=== PATIENT | female | born 1935 | race Caucasian/White ===

== ENCOUNTER 2016-05-04 08:16 | Outpatient (CLI) | payer MEDICARE ==
[2016-05-04 09:35] LABS: #Basophils 0.1 thou/uL (0.0-0.2); #Eosinphils 0.2 thou/uL (0.0-0.7); #Lymphocytes 1.6 thou/uL (1.20-3.40); #Monocytes 0.3 thou/uL (0.11-0.59); #Neutrophils 2.5 thou/uL (1.40-6.50); %Basophils 1.1 % (0.0-1.0); %Eosinophils 3.8 % (0.0-10.0); %Lymphocytes 34.3 % (21.0-51.0); %Monocytes 5.5 % (0.0-10.0); Hematocrit 41.8 % (36.0-47.0); Mean Platelet Volume 6.4 fL (7.4-10.4); Red Blood Cell (RBC) Count 4.62 mill/uL (4.20-5.40); White Blood Cell (WBC) Count 4.6 thou/uL (4.8-10.8)
[2016-05-04 09:41] LABS: ALT (SGPT) 12 U/L (0-55); AST (SGOT) 17 U/L (5-34); Alkaline Phosphatase 69 U/L (40-150); Anion Gap 14 mmol/L (10-20); BUN (Urea Nitrogen) 38 mg/dL (9.8-20.1); Bilirubin, Total 0.5 mg/dL (0.2-1.2); Calc. Creatinine Clearance 0 mL/min (70-130); Calcium 9.2 mg/dL (7.8-10.44); Carbon Dioxide 29 mmol/L (23-31); Chloride 101 mmol/L (98-107); Estimated GFR-MDRD 57; Globulin 2.3 g/dL (2.4-3.5); LDL Cholesterol, Calculated 186 mg/dL; Protein, Total 6.5 g/dL (5.8-8.1)
[2016-05-04 10:18] LABS: Bilirubin Negative (Negative); Blood, Urine Moderate (Negative); Glucose, Urine (Dipstick) Negative (Negative); Ketone, Urine Negative (Negative); Nitrite Negative (Negative); Protein, Urine (Dipstick) Negative (Neg-Trace); Urobilinogen 0.2 mg/dL (0.2-1.0)
[2016-05-04 10:39] LABS: Bacteria/HPF Rare-Few HPF (None Seen); Squamous Epithelial 0-3 HPF (0-3)
== END 2016-05-04 08:17 | disposition home or self-care (01) ==
LOC: NAV LAB 08:16
PROVIDERS: ATTEND Family Medicine
DX: I50.22 Chronic systolic (congestive) heart failure (principal); M80.08XS Age-related osteoporosis with current pathological fracture, vertebra(e), sequela
CPT/HCPCS: 36415; 80053; 80061; 81001; 82306; 84443; 85025

== ENCOUNTER 2016-08-31 11:38 | Outpatient (CLI) | payer MEDICARE ==
[2016-08-31 13:13] LABS: Anion Gap 14 mmol/L (10-20); BUN (Urea Nitrogen) 49 mg/dL (9.8-20.1); Calc. Creatinine Clearance 0 mL/min (70-130); Calcium 8.9 mg/dL (7.8-10.44); Carbon Dioxide 30 mmol/L (23-31); Chloride 102 mmol/L (98-107); Estimated GFR-MDRD 31; Glucose 111 mg/dL (83-110); Potassium 4.8 mmol/L (3.5-5.1); Sodium 141 mmol/L (136-145)
[2016-08-31 13:56] LABS: Follow-up Chemistry Comp? YES; Follow-up Result - Chemistry REPORT FAXED
== END 2016-08-31 11:39 | disposition home or self-care (01) ==
LOC: NAV LAB 11:38
PROVIDERS: ATTEND Specialist
DX: I50.9 Heart failure, unspecified (principal)
CPT/HCPCS: 36415; 80048

== ENCOUNTER 2016-11-03 18:05 | Outpatient (CLI) | payer MEDICARE ==
[2016-11-03 18:49] LABS: #Eosinphils 0.1 thou/uL (0.0-0.7); #Monocytes 0.3 thou/uL (0.11-0.59); #Neutrophils 3.2 thou/uL (1.40-6.50); %Basophils 0.6 % (0.0-1.0); %Eosinophils 1.7 % (0.0-10.0); %Monocytes 7.2 % (0.0-10.0); %Neutrophils 69.5 % (42.0-75.0); Hemoglobin 12.6 g/dL (12.0-16.0); Mean Corpuscular HGB CONC 31.5 g/dL (32.0-36.0); Mean Corpuscular Hemoglobin 27.9 pg (27.0-31.0); Mean Corpuscular Volume 88.6 fl (81.0-99.0); Platelet Count 143 thou/uL (130-400); RBC Distribution Width 11.6 % (11.5-14.5); Red Blood Cell (RBC) Count 4.49 mill/uL (4.20-5.40); White Blood Cell (WBC) Count 4.6 thou/uL (4.8-10.8)
[2016-11-03 19:00] LABS: Anion Gap 16 mmol/L (10-20); BUN (Urea Nitrogen) 32 mg/dL (9.8-20.1); Calc. Creatinine Clearance 0 mL/min (70-130); Calcium 9.6 mg/dL (7.8-10.44); Carbon Dioxide 29 mmol/L (23-31); Chloride 101 mmol/L (98-107); Estimated GFR-MDRD 50; Glucose 93 mg/dL (83-110); Potassium 4.3 mmol/L (3.5-5.1); Sodium 142 mmol/L (136-145)
== END 2016-11-03 18:06 | disposition home or self-care (01) ==
LOC: NAV LABSP 18:05
PROVIDERS: ATTEND Family Medicine
DX: R07.89 Other chest pain (principal)
CPT/HCPCS: 80048; 85025

== ENCOUNTER 2019-04-15 11:26 | Outpatient (CLI) | payer MEDICARE ==
--- NOTE | 2019-04-15 11:51 | RAD ---
Exam: LUMBAR SPINE 3 VIEWS: HISTORY: Fecal incontinence, new onset diagnosis. COMPARISON: 08/26/2014 FINDINGS: Five lumbar type vertebra. There appear to be rudimentary ribs at T12. There is rightward curvature o f the upper lumbar spine with a leftward curvature of the mid to lower lumbar spine. There is vacuum disc phenomenon at L1-L2, L2-L3. Endplate sclerosis is identified, throughout the lumbar spine . Lumbar spine vertebral body height is maintained. There is no fracture. Spondylolisthesis: L1-L2 demonstrates 3.2 mm of retrolisthesis. L2-L3 demonstrates 2.1 mm of retrolisthesis. L4-L5 demonstrates 1.9 mm retrolisthesis. L5-S1 demonstrates 9 mm of anterolisthesis. Visualized bony pelvis and sacrum are grossly unremarkable. Atherosclerosis of aorta is noted. 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 There is mild scoliotic curvature. Mul tilevel vacuum disc phenomenon and osteophyte formation is noted. When compared to the previous exam, there is progression of degenerative change. Transcribed Date/Time: 04/15/2019 12:02 PM
== END 2019-04-15 11:27 | disposition home or self-care (01) ==
LOC: NAV RAD 11:26
PROVIDERS: ATTEND Family Medicine
DX: R15.9 Full incontinence of feces (principal); M41.9 Scoliosis, unspecified; M47.816 Spondylosis without myelopathy or radiculopathy, lumbar region; M25.78 Osteophyte, vertebrae
CPT/HCPCS: 72110

== ENCOUNTER 2020-09-07 07:26 | Outpatient (CLI) | payer MEDICARE ==
[2020-09-08 01:53] LABS: SARS-CoV-2 PCR by NAA Not Detected (NotDetected)
== END 2020-09-07 07:27 | disposition home or self-care (01) ==
LOC: NAV LAB 07:26
PROVIDERS: ATTEND Family Medicine
DX: Z01.89 Encounter for other specified special examinations (principal); N81.5 Vaginal enterocele
CPT/HCPCS: U0003; U0005

== ENCOUNTER 2022-04-13 13:01 | Emergency (ER) | payer MEDICARE ==
[2022-04-13] MEDS ORDERED: Fentanyl 100 MCG/2 ML VIAL ONE (13:26)
[2022-04-13] MEDS ORDERED: Ondansetron ODT 4 MG TAB ONE (13:27)
[2022-04-13] MEDS ORDERED: Ketorolac Tromethamine 30 MG/ML VIAL ONE (14:51)
[2022-04-13] MEDS ORDERED: Morphine 4 MG/ML VIAL ONE ×2 (14:51→17:38)
[2022-04-13 16:10] LABS: Bilirubin Small (Negative); Blood, Urine Moderate (Negative); Glucose, Urine (Dipstick) Negative (Negative); Ketone, Urine Negative (Negative); Leukocyte Small (Negative); Nitrite Positive (Negative); Protein, Urine (Dipstick) Trace mg/dL (Neg-Trace)
[2022-04-13 16:14] LABS: Clarity Hazy (Clear)
[2022-04-13 16:18] LABS: Specific Gravity, Urine 1.026 (1.002-1.036)
[2022-04-13 16:20] LABS: Bacteria/HPF 4+ HPF (None Seen); Squamous Epithelial 0-3 HPF (0-3); WBC/HPF Greater Than 50 HPF (0-3)
[2022-04-13 16:26] LABS: #Eosinphils 0.1 thou/uL (0.0-0.7); #Lymphocytes 1.2 thou/uL (1.20-3.40); #Monocytes 0.2 thou/uL (0.11-0.59); #Neutrophils 5.5 thou/uL (1.40-6.50); %Basophils 0.3 % (0.0-1.0); %Eosinophils 1.1 % (0.0-10.0); %Lymphocytes 17.5 % (21.0-51.0); %Monocytes 3.4 % (0.0-10.0); %Neutrophils 77.8 % (42.0-75.0); Hemoglobin 10.4 g/dL (12.0-16.0); Mean Corpuscular HGB CONC 31.4 g/dL (32.0-36.0); Mean Corpuscular Hemoglobin 29.9 pg (27.0-31.0); Mean Corpuscular Volume 95.3 fl (78.0-98.0); Mean Platelet Volume 6.6 fL (7.4-10.4); Platelet Count 150 10x3/uL (130-400); RBC Distribution Width 13.1 % (11.5-14.5); Red Blood Cell (RBC) Count 3.47 mill/uL (4.20-5.40)
[2022-04-13 16:32] LABS: PTT 30.6 sec (22.9-36.1); Prothrombin Time 13.8 sec (12.0-14.7)
[2022-04-13 16:41] LABS: ALT (SGPT) 12 U/L (8-55); AST (SGOT) 14 U/L (5-34); Alkaline Phosphatase 81 U/L (40-110); Anion Gap 11 mmol/L (10-20); BUN (Urea Nitrogen) 31 mg/dL (9.8-20.1); Bilirubin, Total 0.4 mg/dL (0.2-1.2); Calc. Creatinine Clearance 0 mL/min (70-130); Calcium 8.2 mg/dL (7.8-10.44); Carbon Dioxide 29 mmol/L (23-31); Chloride 102 mmol/L (98-107); Estimated GFR 73; Globulin 2.5 g/dL (2.4-3.5); Glucose 100 mg/dL (83-110); Lipase 22 U/L (8-78); Magnesium 1.9 mg/dL (1.6-2.6); Potassium 4.1 mmol/L (3.5-5.1); Protein, Total 5.5 g/dL (5.8-8.1); Sodium 138 mmol/L (136-145)
[2022-04-13] MEDS ORDERED: cefTRIAXone\\ROCEPHIN 1 GM VIAL ONE (16:43)
[2022-04-13] MEDS ORDERED: Acetaminophen 325 MG TAB ONE (16:43)
[2022-04-13] MEDS ORDERED: Sodium Chloride 0.9% 100 ML ONE (16:45)
[2022-04-13 18:45] LABS: SARS-CoV-2 NAA Rapid Test Not Detected (NotDetected)
== END 2022-04-13 19:33 | disposition short-term general hospital (02) ==
LOC: NAV ERS 13:01
DX: A41.9 Sepsis, unspecified organism (principal); N39.0 Urinary tract infection, site not specified; M54.50 Low back pain, unspecified; M19.90 Unspecified osteoarthritis, unspecified site; M81.0 Age-related osteoporosis without current pathological fracture; Z20.822 Contact with and (suspected) exposure to COVID-19; Z79.899 Other long term (current) drug therapy
CPT/HCPCS: 71045; 72131; 80053; 81003; 81015; 83605; 83690; 83735; 85025; 85610; 85730; 87040; 87077; 87086; 87149; 87186; 87804; 93005; 96372; 96374; 96375; J0696; J1885; J2270; J3010; J3490; Q0162; U0002

== ENCOUNTER 2022-05-18 10:54 | Inpatient (IN) | payer MEDICARE ==
[2022-05-18] MEDS ORDERED: diphenhydrAMINE 25 MG CAP PO PRN (15:19)
[2022-05-18] MEDS ORDERED: Ipratropium/Albuterol 3 ML NEB NEB PRN (15:19)
[2022-05-18] MEDS ORDERED: Cyclobenzaprine 10 MG TAB PO PRN (15:19)
[2022-05-18] MEDS ORDERED: Ondansetron ODT 4 MG TAB SL PRN (15:24)
[2022-05-18] MEDS ORDERED: Bisacodyl 5 MG TAB PO PRN (15:24)
[2022-05-18] MEDS ORDERED: Morphine IR 10 MG/5 ML UDCUP PO PRN (17:12)
[2022-05-18] MEDS: Ferrous Gluconate 324 MG TAB PO SCH (18:03)
[2022-05-18] MEDS: Acetaminophen 500 MG TAB PO SCH ×2 (18:03→23:59)
[2022-05-18] MEDS ORDERED: hydrALAZINE 25 MG TAB PO PRN (19:29)
[2022-05-18] MEDS: Gabapentin 300 MG CAP PO SCH (21:15)
[2022-05-18] MEDS: DULoxetine 30 MG CAP PO SCH (21:16)
[2022-05-18] MEDS: Aspirin 81 mg Enteric Coated Tablet PO SCH (21:16)
[2022-05-18] MEDS: Carvedilol 6.25 MG TAB PO SCH (21:17)
[2022-05-18] MEDS: traZODone HCl 50 MG TAB PO SCH (21:17)
[2022-05-18] MEDS: traMADol HCl 50 MG TAB PO SCH (21:18)
[2022-05-19] MEDS: traMADol HCl 50 MG TAB PO SCH ×4 (02:00→20:30)
[2022-05-19] MEDS: Acetaminophen 500 MG TAB PO SCH ×4 (04:35→23:54)
[2022-05-19] MEDS: traMADol HCl 50 MG TAB PO PRN (04:35)
[2022-05-19 06:24] LABS: #Eosinphils 0.2 thou/uL (0.0-0.7); #Monocytes 0.2 thou/uL (0.11-0.59); #Neutrophils 2.7 thou/uL (1.40-6.50); %Basophils 0.5 % (0.0-1.0); %Eosinophils 5.8 % (0.0-10.0); %Lymphocytes 24.1 % (21.0-51.0); %Monocytes 4.4 % (0.0-10.0); %Neutrophils 65.2 % (42.0-75.0); Hemoglobin 8.2 g/dL (12.0-16.0); Mean Corpuscular HGB CONC 31.9 g/dL (32.0-36.0); Mean Corpuscular Hemoglobin 28.1 pg (27.0-31.0); Mean Corpuscular Volume 88.4 fl (78.0-98.0); Mean Platelet Volume 4.8 fL (7.4-10.4); Platelet Count 148 10x3/uL (130-400); RBC Distribution Width 14.5 % (11.5-14.5); Red Blood Cell (RBC) Count 2.92 mill/uL (4.20-5.40); White Blood Cell (WBC) Count 4.1 10x3/uL (4.8-10.8)
[2022-05-19 06:28] LABS: ALT (SGPT) 8 U/L (8-55); AST (SGOT) 22 U/L (5-34); Albumin 2.8 g/dL (3.4-4.8); Alkaline Phosphatase 65 U/L (40-110); Anion Gap 16 mmol/L (10-20); BUN (Urea Nitrogen) 16 mg/dL (9.8-20.1); Bilirubin, Total 0.4 mg/dL (0.2-1.2); Calc. Creatinine Clearance 51 mL/min (70-130); Calcium 7.9 mg/dL (7.8-10.44); Carbon Dioxide 25 mmol/L (23-31); Chloride 103 mmol/L (98-107); Estimated GFR 86; Globulin 2.2 g/dL (2.4-3.5); Glucose 88 mg/dL (83-110); Potassium 3.6 mmol/L (3.5-5.1); Sodium 140 mmol/L (136-145)
[2022-05-19] MEDS ORDERED: Morphine IR 10 MG/5 ML UDCUP PO SCH ×2 (08:00→15:00)
[2022-05-19] MEDS: Gabapentin 300 MG CAP PO SCH ×2 (08:47→20:28)
[2022-05-19] MEDS: DULoxetine 30 MG CAP PO SCH ×2 (08:47→20:30)
[2022-05-19] MEDS: Valsartan 80 MG TAB PO SCH (08:48)
[2022-05-19] MEDS: Ferrous Gluconate 324 MG TAB PO SCH ×2 (08:48→17:14)
[2022-05-19] MEDS: Carvedilol 6.25 MG TAB PO SCH ×2 (08:48→20:29)
[2022-05-19] MEDS: Aspirin 81 mg Enteric Coated Tablet PO SCH ×2 (08:48→20:29)
[2022-05-19] MEDS: Famotidine 20 MG TAB PO SCH (08:48)
[2022-05-19] MEDS ORDERED: Valsartan 80 MG TAB PO SCH (09:00)
[2022-05-19] MEDS: Morphine IR Tab 15 MG TAB PO SCH ×2 (10:02→15:05)
[2022-05-19] MEDS: Atorvastatin Calcium 20 MG TAB PO SCH (20:28)
[2022-05-19] MEDS: traZODone HCl 50 MG TAB PO SCH (20:31)
[2022-05-20] MEDS: traMADol HCl 50 MG TAB PO SCH ×4 (03:17→20:27)
[2022-05-20] MEDS: traMADol HCl 50 MG TAB PO PRN (04:03)
[2022-05-20] MEDS: Acetaminophen 500 MG TAB PO SCH ×3 (05:17→18:14)
[2022-05-20] MEDS: Ferrous Gluconate 324 MG TAB PO SCH ×2 (08:38→17:14)
[2022-05-20] MEDS: Morphine IR Tab 15 MG TAB PO SCH ×2 (08:38→14:28)
[2022-05-20] MEDS: DULoxetine 30 MG CAP PO SCH ×2 (08:39→20:26)
[2022-05-20] MEDS: Famotidine 20 MG TAB PO SCH (08:40)
[2022-05-20] MEDS: Valsartan 80 MG TAB PO SCH (08:40)
[2022-05-20] MEDS: Gabapentin 300 MG CAP PO SCH ×2 (08:40→20:26)
[2022-05-20] MEDS: Aspirin 81 mg Enteric Coated Tablet PO SCH ×2 (08:41→20:26)
[2022-05-20] MEDS: Carvedilol 6.25 MG TAB PO SCH ×2 (08:41→20:25)
[2022-05-20] MEDS: Atorvastatin Calcium 20 MG TAB PO SCH (20:25)
[2022-05-20] MEDS: traZODone HCl 50 MG TAB PO SCH (20:26)
[2022-05-21] MEDS: Acetaminophen 500 MG TAB PO SCH ×4 (00:07→17:33)
[2022-05-21] MEDS: traMADol HCl 50 MG TAB PO SCH ×4 (02:00→20:27)
[2022-05-21] MEDS: Valsartan 80 MG TAB PO SCH (08:18)
[2022-05-21] MEDS: Ferrous Gluconate 324 MG TAB PO SCH ×2 (08:19→15:51)
[2022-05-21] MEDS: Famotidine 20 MG TAB PO SCH (08:19)
[2022-05-21] MEDS: DULoxetine 30 MG CAP PO SCH ×2 (08:19→20:27)
[2022-05-21] MEDS: Aspirin 81 mg Enteric Coated Tablet PO SCH ×2 (08:19→20:27)
[2022-05-21] MEDS: Carvedilol 6.25 MG TAB PO SCH ×2 (08:20→20:27)
[2022-05-21] MEDS: Gabapentin 300 MG CAP PO SCH ×2 (08:21→20:29)
[2022-05-21] MEDS: Morphine IR Tab 15 MG TAB PO SCH ×2 (08:22→15:49)
[2022-05-21] MEDS ORDERED: Polyethylene Glycol 3350 17 GM Packet PO PRN (11:49)
[2022-05-21] MEDS: traZODone HCl 50 MG TAB PO SCH (20:27)
[2022-05-21] MEDS: Atorvastatin Calcium 20 MG TAB PO SCH (20:27)
[2022-05-22] MEDS: Acetaminophen 500 MG TAB PO SCH ×5 (00:30→23:08)
[2022-05-22] MEDS: traMADol HCl 50 MG TAB PO SCH ×4 (02:00→20:30)
[2022-05-22] MEDS: traMADol HCl 50 MG TAB PO PRN (04:47)
[2022-05-22] MEDS: Senokot S 8.6-50 MG TAB PO PRN (05:55)
[2022-05-22 06:16] LABS: Anion Gap 12 mmol/L (10-20); BUN (Urea Nitrogen) 18 mg/dL (9.8-20.1); Calc. Creatinine Clearance 53 mL/min (70-130); Carbon Dioxide 28 mmol/L (23-31); Chloride 104 mmol/L (98-107); Estimated GFR 87; Glucose 99 mg/dL (83-110); Potassium 3.3 mmol/L (3.5-5.1); Sodium 141 mmol/L (136-145)
[2022-05-22 06:39] LABS: #Eosinphils 0.3 thou/uL (0.0-0.7); #Monocytes 0.2 thou/uL (0.11-0.59); %Basophils 1.2 % (0.0-1.0); %Lymphocytes 27.9 % (21.0-51.0); %Monocytes 6.7 % (0.0-10.0); %Neutrophils 56.2 % (42.0-75.0); Hemoglobin 8.6 g/dL (12.0-16.0); Mean Corpuscular HGB CONC 31.4 g/dL (32.0-36.0); Mean Corpuscular Hemoglobin 28.5 pg (27.0-31.0); Mean Corpuscular Volume 90.7 fl (78.0-98.0); Mean Platelet Volume 4.9 fL (7.4-10.4); Platelet Count 166 10x3/uL (130-400); RBC Distribution Width 15.8 % (11.5-14.5); Red Blood Cell (RBC) Count 3.01 mill/uL (4.20-5.40); White Blood Cell (WBC) Count 3.5 10x3/uL (4.8-10.8)
[2022-05-22] MEDS: Ferrous Gluconate 324 MG TAB PO SCH ×2 (08:18→17:58)
[2022-05-22] MEDS: Morphine IR Tab 15 MG TAB PO SCH ×2 (08:18→15:26)
[2022-05-22] MEDS: Valsartan 80 MG TAB PO SCH (08:19)
[2022-05-22] MEDS: DULoxetine 30 MG CAP PO SCH ×2 (08:19→20:30)
[2022-05-22] MEDS: Famotidine 20 MG TAB PO SCH (08:19)
[2022-05-22] MEDS: Gabapentin 300 MG CAP PO SCH ×2 (08:19→20:31)
[2022-05-22] MEDS: Aspirin 81 mg Enteric Coated Tablet PO SCH ×2 (08:20→20:30)
[2022-05-22] MEDS: Carvedilol 6.25 MG TAB PO SCH ×2 (08:20→20:31)
[2022-05-22] MEDS ORDERED: Potassium Chloride 20 MEQ TAB PO SCH (13:15)
[2022-05-22] MEDS: Atorvastatin Calcium 20 MG TAB PO SCH (20:30)
[2022-05-22] MEDS: traZODone HCl 50 MG TAB PO SCH (20:31)
[2022-05-23] MEDS: traMADol HCl 50 MG TAB PO SCH ×4 (02:00→20:25)
[2022-05-23] MEDS: Acetaminophen 500 MG TAB PO SCH ×3 (06:06→17:01)
[2022-05-23] MEDS: Senokot S 8.6-50 MG TAB PO PRN (06:13)
[2022-05-23] MEDS: Morphine IR Tab 15 MG TAB PO SCH ×2 (07:42→16:58)
[2022-05-23] MEDS: Ferrous Gluconate 324 MG TAB PO SCH ×2 (07:44→17:01)
[2022-05-23] MEDS: Carvedilol 6.25 MG TAB PO SCH ×2 (08:37→20:24)
[2022-05-23] MEDS: DULoxetine 30 MG CAP PO SCH ×2 (08:37→20:25)
[2022-05-23] MEDS: Aspirin 81 mg Enteric Coated Tablet PO SCH ×2 (08:37→20:25)
[2022-05-23] MEDS: Gabapentin 300 MG CAP PO SCH ×2 (08:38→20:25)
[2022-05-23] MEDS: Famotidine 20 MG TAB PO SCH (08:38)
[2022-05-23] MEDS: Valsartan 80 MG TAB PO SCH (08:38)
[2022-05-23 18:42] LABS: #Basophils 0.1 thou/uL (0.0-0.2); #Eosinphils 0.2 thou/uL (0.0-0.7); #Lymphocytes 1.1 thou/uL (1.20-3.40); #Monocytes 0.4 thou/uL (0.11-0.59); #Neutrophils 4.6 thou/uL (1.40-6.50); %Basophils 0.8 % (0.0-1.0); %Eosinophils 3.1 % (0.0-10.0); %Lymphocytes 17.6 % (21.0-51.0); %Monocytes 6.8 % (0.0-10.0); %Neutrophils 71.7 % (42.0-75.0); Hemoglobin 8.8 g/dL (12.0-16.0); Mean Corpuscular HGB CONC 31.1 g/dL (32.0-36.0); Mean Corpuscular Hemoglobin 28.1 pg (27.0-31.0); Mean Corpuscular Volume 90.5 fl (78.0-98.0); Mean Platelet Volume 5.1 fL (7.4-10.4); Platelet Count 187 10x3/uL (130-400); RBC Distribution Width 16.8 % (11.5-14.5); Red Blood Cell (RBC) Count 3.14 mill/uL (4.20-5.40); White Blood Cell (WBC) Count 6.4 10x3/uL (4.8-10.8)
[2022-05-23 18:53] LABS: Anion Gap 15 mmol/L (10-20); BUN (Urea Nitrogen) 20 mg/dL (9.8-20.1); Calc. Creatinine Clearance 45 mL/min (70-130); Carbon Dioxide 25 mmol/L (23-31); Chloride 100 mmol/L (98-107); Estimated GFR 79; Glucose 124 mg/dL (83-110); Potassium 3.8 mmol/L (3.5-5.1); Sodium 136 mmol/L (136-145)
[2022-05-23] MEDS: traZODone HCl 50 MG TAB PO SCH (20:24)
[2022-05-23] MEDS: Atorvastatin Calcium 20 MG TAB PO SCH (20:25)
[2022-05-23 21:25] LABS: Bilirubin Small (Negative); Blood, Urine Trace (Negative); Clarity Clear (Clear); Glucose, Urine (Dipstick) Negative (Negative); Ketone, Urine Trace mg/dL (Negative); Leukocyte Negative (Negative); Nitrite Negative (Negative); Protein, Urine (Dipstick) Negative (Neg-Trace); pH, Urine 5.5 (5.0-9.0)
[2022-05-23 21:30] LABS: Bacteria/HPF None Seen HPF (None Seen); WBC/HPF 0-3 HPF (0-3)
[2022-05-24] MEDS: Acetaminophen 500 MG TAB PO SCH ×4 (00:01→17:28)
[2022-05-24] MEDS: traMADol HCl 50 MG TAB PO SCH ×4 (02:00→20:12)
[2022-05-24 05:51] LABS: #Basophils 0.1 thou/uL (0.0-0.2); #Eosinphils 0.1 thou/uL (0.0-0.7); #Lymphocytes 1.3 thou/uL (1.20-3.40); #Monocytes 0.4 thou/uL (0.11-0.59); #Neutrophils 5.2 thou/uL (1.40-6.50); %Basophils 0.8 % (0.0-1.0); %Eosinophils 2.1 % (0.0-10.0); %Lymphocytes 17.9 % (21.0-51.0); %Neutrophils 73.2 % (42.0-75.0); Hemoglobin 8.4 g/dL (12.0-16.0); Mean Corpuscular HGB CONC 31.6 g/dL (32.0-36.0); Mean Corpuscular Hemoglobin 28.7 pg (27.0-31.0); Mean Corpuscular Volume 90.7 fl (78.0-98.0); Mean Platelet Volume 5.1 fL (7.4-10.4); Platelet Count 178 10x3/uL (130-400); RBC Distribution Width 16.7 % (11.5-14.5); Red Blood Cell (RBC) Count 2.93 mill/uL (4.20-5.40); White Blood Cell (WBC) Count 7.1 10x3/uL (4.8-10.8)
[2022-05-24] MEDS: Senokot S 8.6-50 MG TAB PO PRN (05:56)
[2022-05-24 06:06] LABS: Anion Gap 14 mmol/L (10-20); BUN (Urea Nitrogen) 18 mg/dL (9.8-20.1); Calc. Creatinine Clearance 50 mL/min (70-130); Calcium 7.9 mg/dL (7.8-10.44); Carbon Dioxide 25 mmol/L (23-31); Chloride 99 mmol/L (98-107); Estimated GFR 85; Glucose 95 mg/dL (83-110); Potassium 3.7 mmol/L (3.5-5.1); Sodium 134 mmol/L (136-145)
[2022-05-24] MEDS: Gabapentin 300 MG CAP PO SCH ×2 (08:14→20:14)
[2022-05-24] MEDS: Docusate 100 MG CAP PO SCH ×2 (08:14→20:13)
[2022-05-24] MEDS: Aspirin 81 mg Enteric Coated Tablet PO SCH ×2 (08:14→20:13)
[2022-05-24] MEDS: Ferrous Gluconate 324 MG TAB PO SCH ×2 (08:14→17:28)
[2022-05-24] MEDS: Valsartan 80 MG TAB PO SCH (08:14)
[2022-05-24] MEDS: Famotidine 20 MG TAB PO SCH (08:16)
[2022-05-24] MEDS: Morphine IR Tab 15 MG TAB PO SCH ×2 (08:18→15:47)
[2022-05-24] MEDS: Carvedilol 6.25 MG TAB PO SCH ×2 (08:21→20:14)
[2022-05-24] MEDS: DULoxetine 30 MG CAP PO SCH ×2 (08:21→20:13)
[2022-05-24 11:37] LABS: SARS-CoV-2 NAA Rapid Test Not Detected (NotDetected)
[2022-05-24] MEDS: traZODone HCl 50 MG TAB PO SCH (20:13)
[2022-05-24] MEDS: Atorvastatin Calcium 20 MG TAB PO SCH (20:14)
[2022-05-25] MEDS: Acetaminophen 500 MG TAB PO SCH ×4 (00:26→17:21)
[2022-05-25 00:42] VITALS: BMI 22.8
[2022-05-25] MEDS: traMADol HCl 50 MG TAB PO SCH ×4 (02:23→20:40)
[2022-05-25] MEDS: Famotidine 20 MG TAB PO SCH (08:23)
[2022-05-25] MEDS: Aspirin 81 mg Enteric Coated Tablet PO SCH ×2 (08:23→20:42)
[2022-05-25] MEDS: Carvedilol 6.25 MG TAB PO SCH ×2 (08:23→20:44)
[2022-05-25] MEDS: Gabapentin 300 MG CAP PO SCH ×2 (08:23→20:43)
[2022-05-25] MEDS: Ferrous Gluconate 324 MG TAB PO SCH ×2 (08:24→17:22)
[2022-05-25] MEDS: Morphine IR Tab 15 MG TAB PO SCH ×2 (08:24→15:05)
[2022-05-25] MEDS: DULoxetine 30 MG CAP PO SCH ×2 (08:24→20:43)
[2022-05-25] MEDS: Valsartan 80 MG TAB PO SCH (08:25)
[2022-05-25] MEDS: Docusate 100 MG CAP PO SCH ×2 (08:26→20:42)
[2022-05-25 20:35] VITALS: TEMP 97.9
[2022-05-25] MEDS: traZODone HCl 50 MG TAB PO SCH (20:42)
[2022-05-25] MEDS: Atorvastatin Calcium 20 MG TAB PO SCH (20:42)
[2022-05-26] MEDS: Acetaminophen 500 MG TAB PO SCH ×2 (00:07→05:08)
[2022-05-26] MEDS: traMADol HCl 50 MG TAB PO SCH ×2 (02:41→08:47)
[2022-05-26] MEDS: Morphine IR Tab 15 MG TAB PO SCH (08:33)
[2022-05-26] MEDS: DULoxetine 30 MG CAP PO SCH (08:35)
[2022-05-26] MEDS: Gabapentin 300 MG CAP PO SCH (08:35)
[2022-05-26] MEDS: Docusate 100 MG CAP PO SCH (08:35)
[2022-05-26] MEDS: Aspirin 81 mg Enteric Coated Tablet PO SCH (08:35)
[2022-05-26] MEDS: Ferrous Gluconate 324 MG TAB PO SCH (08:36)
[2022-05-26] MEDS: Famotidine 20 MG TAB PO SCH (08:36)
[2022-05-26] MEDS: Valsartan 80 MG TAB PO SCH (08:36)
[2022-05-26] MEDS: Carvedilol 6.25 MG TAB PO SCH (08:46)
[2022-05-26 08:53] VITALS: BP 164/77
== END 2022-05-26 10:15 | disposition home health service (06) | DRG 560 ==
LOC: NAV ACUTE 16:55
PROVIDERS: ADMIT Family Medicine; ATTEND Family Medicine
DX: Z47.1 Aftercare following joint replacement surgery (principal); I50.32 Chronic diastolic (congestive) heart failure; M81.0 Age-related osteoporosis without current pathological fracture; I11.0 Hypertensive heart disease with heart failure; E78.5 Hyperlipidemia, unspecified; Z20.822 Contact with and (suspected) exposure to COVID-19; M48.00 Spinal stenosis, site unspecified; K59.00 Constipation, unspecified; G89.29 Other chronic pain; G47.00 Insomnia, unspecified; E87.6 Hypokalemia; M79.7 Fibromyalgia; F41.9 Anxiety disorder, unspecified; F32.A Depression, unspecified; Z96.651 Presence of right artificial knee joint; Z95.2 Presence of prosthetic heart valve; Z90.710 Acquired absence of both cervix and uterus; Z95.810 Presence of automatic (implantable) cardiac defibrillator; Z98.49 Cataract extraction status, unspecified eye; Z88.0 Allergy status to penicillin; Z79.82 Long term (current) use of aspirin; Z79.899 Other long term (current) drug therapy
CPT/HCPCS: 36415; 71045; 80048; 80053; 81001; 85025; 87086; 87804; U0002; U0003; U0005

== ENCOUNTER 2022-07-11 09:50 | Outpatient (CLI) | payer MEDICARE ==
[2022-07-11 11:24] LABS: Anion Gap 15 mmol/L (10-20); BUN (Urea Nitrogen) 19 mg/dL (9.8-20.1); CRP (Inflammatory) 10.01 mg/dL (= or < 0.5); Calc. Creatinine Clearance 0 mL/min (70-130); Calcium 8.3 mg/dL (7.8-10.44); Carbon Dioxide 25 mmol/L (23-31); Chloride 103 mmol/L (98-107); Estimated GFR 67; Glucose 92 mg/dL (83-110); Potassium 3.8 mmol/L (3.5-5.1); Sodium 139 mmol/L (136-145)
[2022-07-11 11:28] LABS: Mean Corpuscular HGB CONC 29.6 g/dL (32.0-36.0); Mean Corpuscular Hemoglobin 24.1 pg (27.0-31.0); Mean Corpuscular Volume 81.2 fl (78.0-98.0); Platelet Count 163 10x3/uL (130-400); RBC Distribution Width 15.9 % (11.5-14.5); Red Blood Cell (RBC) Count 3.75 mill/uL (4.20-5.40); White Blood Cell (WBC) Count 5.5 10x3/uL (4.8-10.8)
[2022-07-11 11:29] LABS: #Monocytes 0.3 thou/uL (0.11-0.59); #Neutrophils 4.2 thou/uL (1.40-6.50); %Basophils 0.6 % (0.0-1.0); %Eosinophils 0.6 % (0.0-10.0); %Lymphocytes 17.2 % (21.0-51.0); %Monocytes 5.4 % (0.0-10.0); %Neutrophils 76.3 % (42.0-75.0); Hypochromia MODERATE=16-30 cells (100X) (0-5/hpf); Manual Diff?? NO; Mean Platelet Volume 5.5 fL (7.4-10.4); Microcytosis MODERATE=15-30 cells (100X) (0-5/hpf); Platelet Morphology Comment Appears Adequate
== END 2022-07-11 09:51 | disposition home or self-care (01) ==
LOC: NAV CT 09:50
PROVIDERS: ATTEND Family Medicine
DX: N20.0 Calculus of kidney (principal); R31.21 Asymptomatic microscopic hematuria; G89.29 Other chronic pain; M54.51 Vertebrogenic low back pain; R50.9 Fever, unspecified; K76.89 Other specified diseases of liver; M47.816 Spondylosis without myelopathy or radiculopathy, lumbar region; Z20.822 Contact with and (suspected) exposure to COVID-19
CPT/HCPCS: 36415; 72100; 74176; 80048; 85025; 85652; 86140; 86769

== ENCOUNTER 2023-04-02 10:17 | Outpatient (CLI) | payer MEDICARE | END 2023-04-02 10:18 | disposition home or self-care (01) | LOC: NAV RAD 10:17 | PROVIDERS: ATTEND Family Medicine | DX: M17.11 Unilateral primary osteoarthritis, right knee (principal); M41.9 Scoliosis, unspecified; M47.816 Spondylosis without myelopathy or radiculopathy, lumbar region | CPT/HCPCS: 72100 ==

== ENCOUNTER 2023-09-04 11:30 | Emergency (ER) | payer MEDICARE ==
[2023-09-04] MEDS ORDERED: Oxymetazoline HCl 0.05% (30 ML BOT) ONE (12:04)
== END 2023-09-04 13:00 | disposition home or self-care (01) ==
LOC: NAV ERS 11:30
DX: R04.0 Epistaxis (principal)
CPT/HCPCS: 99283

== ENCOUNTER 2024-02-23 10:18 | Emergency (ER) | payer MEDICARE | END 2024-02-23 13:03 | disposition home or self-care (01) | LOC: NAV ERS 10:18 | DX: S82.145A Nondisplaced bicondylar fracture of left tibia, initial encounter for closed fracture (principal); W18.30XA Fall on same level, unspecified, initial encounter; Z91.81 History of falling; Y93.89 Activity, other specified; Y92.002 Bathroom of unspecified non-institutional (private) residence as the place of occurrence of the external cause ==

== ENCOUNTER 2025-02-22 08:12 | Emergency (ER) | payer MEDICARE ==
[2025-02-22] MEDS ORDERED: Iopamidol 370 76% 100 ML VIAL ONE (09:00)
[2025-02-22 09:03] LABS: Glucose, Urine (Dipstick) 100 mg/dL (Negative); Leukocyte Small (Negative); Protein, Urine (Dipstick) 100 mg/dL (Neg-Trace); Specific Gravity, Urine 1.020 (1.005-1.030)
[2025-02-22 09:05] LABS: Bacteria/HPF 4+ HPF (None Seen); CAUTI Indications for Culture Acute Hematuria; RBC/HPF Greater than 50 HPF (0-3)
[2025-02-22 09:06] LABS: Urine Culture Reflex Yes Yes
[2025-02-22 09:09] LABS: ALT (SGPT) 10 U/L (Less than 34); AST (SGOT) 20 U/L (11-34); Albumin 3.7 g/dL (3.1-4.5); Alkaline Phosphatase 83 U/L (40-110); Anion Gap 16 mmol/L (10-20); BUN (Urea Nitrogen) 22 mg/dL (9.8-20.1); Bilirubin, Total 0.6 mg/dL (0.3-1.2); Calc. Creatinine Clearance 0 mL/min (70-130); Calcium 8.4 mg/dL (7.8-10.44); Carbon Dioxide 24 mmol/L (23-31); Chloride 103 mmol/L (98-107); Globulin 2.4 g/dL (2.4-3.5); Glucose 104 mg/dL (83-110); Lipase 27 U/L (8-78); Potassium 3.6 mmol/L (3.5-5.1); Sodium 139 mmol/L (136-145)
[2025-02-22 09:10] LABS: Hematocrit 38.9 % (36.0-47.0); Hemoglobin 13.2 g/dL (12.0-16.0); Mean Corpuscular Hemoglobin 28.6 pg (27.0-31.0); Mean Corpuscular Volume 84.0 fl (78.0-98.0); Platelet Count 156 10x3/uL (130-400); Red Blood Cell (RBC) Count 4.62 mill/uL (4.20-5.40); White Blood Cell (WBC) Count 4.7 10x3/uL (4.8-10.8)
[2025-02-22] MEDS ORDERED: cefTRIAXone (ROCEPHIN) 1 GM VIAL ONE (09:24)
== END 2025-02-22 12:44 | disposition home or self-care (01) ==
LOC: NAV ERS 08:12
DX: K59.00 Constipation, unspecified (principal); N39.0 Urinary tract infection, site not specified; I50.9 Heart failure, unspecified
CPT/HCPCS: 74177; 80053; 81001; 83690; 85025; 87077; 87086; J0696; Q9967